=== PATIENT | female | born 1965 | race Caucasian/White ===

== ENCOUNTER → 2016-08-16 | Outpatient (CLI) | payer BC ==
--- NOTE | 2016-08-16 15:21 | REPMRS ---
Patient History The patient states she had a clinical breast exam in 2015. Family history of breast cancer in mother at age 81. Taking estrogen for 3 years. Digital Mammo Screening Bilat: August 16, 2016 - Exam #: [id number] Bilateral CC and MLO view(s) were taken. Technologist: Griselda Cunningham, Technologist Prior study comparison: December 07, 2014, bilateral digital mammo screening bilat performed at [facility] [facility]. FINDINGS: There are scattered fibroglandular densities. There has been no change in the appearance of the mammogram from the prior studies. There is a mild amount of residual fibroglandular tissue which is fairly symmetric. There is no interval development of dominant mass, architectural distortion, or clustered microcalcification suggestive of malignancy. ASSESSMENT: BI-RADS/ACR category 1 mammogram. Negative. Recommendation Routine screening mammogram in 1 year (for women over age 40). This mammogram was interpreted with the aid of an FDA-approved computer-aided dectection system. Electronically Signed By: Martir Olea MD 08/16/16 1982
--- NOTE | 2016-08-16 16:44 | REP ---
PELVIC ULTRASOUND: Real-time sonographic evaluation of the pelvis was performed utilizing transabdominal and endovaginal technique. The bladder measures 4.4 x 2.8 x 7.0 cm. The uterus measures 9.0 x 5.4 x 6.2 cm. Endometrial thickness is 8 mm. There is no endometrial fluid collection. Ovaries are normal in size and echotexture, right ovary measuring 2.2 x 1.6 x 1.4 cm and the left ovary measuring 3.2 x 1.4 x 2.0 cm. No adnexal mass is seen. There is no free fluid. Uterus is diffuse heterogenous. Endometrium is heterogenous and the borders of the endometrium are very ill-defined. IMPRESSION: Diffusely heterogenous myometrium and endometrium with ill-defined borders of the endometrium. Findings could indicate adenomyosis. Somewhat thickened endometrium in this postmenopausal patient could indicate endometrial hyperplasia. Recommend endometrial sampling to exclude neoplasm. Signed by Martir Olea MD 08/16/2016 05:04 P
== END ==
LOC: M RAD 14:02
PROVIDERS: ATTEND Obstetrics & Gynecology
DX: Z01.411 Encounter for gynecological examination (general) (routine) with abnormal findings (principal); Z12.31 Encounter for screening mammogram for malignant neoplasm of breast; Z80.3 Family history of malignant neoplasm of breast; Z79.899 Other long term (current) drug therapy; N85.00 Endometrial hyperplasia, unspecified; R93.8 Abnormal findings on diagnostic imaging of other specified body structures
CPT/HCPCS: 76830; 76856; G0202

== ENCOUNTER → 2016-12-19 | Outpatient (CLI) | payer BC ==
[~2016-12-19] MED LIST: MEGACE PO; MULT1TAB10 PO; VITA10002 PO
[2016-12-19 13:27] LABS: MEAN CORPUSCULAR HGB CONC 34.3 g/dl (32.0-36.5); MEAN CORPUSCULAR VOLUME 93.2 fl (80.0-96.0); RED CELL DISTRIBUTION WIDTH 12.8 % (11.5-14.5)
[2016-12-19 13:48] LABS: ALBUMIN 4.2 GM/DL (3.2-5.2); ALKALINE PHOSPHATASE 73 U/L (45-117); ALT/SGPT 32 U/L (12-78); ANION GAP 9 MEQ/L (8-16); AST/SGOT 19 U/L (15-37); BILIRUBIN,TOTAL 0.5 MG/DL (0.2-1.0); BLOOD UREA NITROGEN 18 MG/DL (7-18); CALCIUM LEVEL 9.2 MG/DL (8.5-10.1); CARBON DIOXIDE LEVEL 24 MEQ/L (21-32); CHLORIDE LEVEL 108 MEQ/L (98-107); CHOLESTEROL LEVEL 215 MG/DL (<200); CREATININE FOR GFR 0.81 MG/DL (0.55-1.02); GLOMERULAR FILTRATION RATE > 60.0 (>51); GLUCOSE, FASTING 83 MG/DL (70-105); POTASSIUM SERUM 4.5 MEQ/L (3.5-5.1); SODIUM LEVEL 141 MEQ/L (136-145); TOTAL PROTEIN 7.2 GM/DL (6.4-8.2); TRIGLYCERIDES LEVEL 117 MG/DL (<150)
== END ==
LOC: M SMT 09:01
PROVIDERS: ATTEND Nurse Practitioner Family
DX: R53.83 Other fatigue (principal)

== ENCOUNTER → 2016-12-23 | Day surgery (SDC) | payer BC ==
[~2016-12-23] VITALS: Ht 160 cm; Wt 90.7 kg
[~2016-12-23] MED LIST changes: +CHLOROPROCAINE 2 % INJ PRES.FREE 20 ML VIAL (J2400) As Ordered ONE; +IBUPROFEN 600 MG TAB PO PRN; +LACTATED RINGER'S 1000 ML IV ONE; +LACTATED RINGER'S 1000 ML IV PRN; +LIDOCAINE 2% INJ 100 MG/5 ML SDV (FOR ANES.) As Ordered ONE; +LIDOCAINE 2% JELLY 30 ML As Ordered ONE; +LR 1,000 ML IV ONE; +LR 1,000 ML IV SCH; +MEPERIDINE INJ 25 MG/ML VIAL (J2175) IV PRN; +METOCLOPRAMIDE INJ 10MG/2ML VIAL (J2765) IV PRN; +MIDAZOLAM INJ 2 MG/2 ML VIAL (J2250) As Ordered ONE; +ONDANSETRON 4MG/2ML VIAL (J2405) As Ordered ONE; +ONDANSETRON 4MG/2ML VIAL (J2405) IV PRN; +PERCOCET 5MG/325MG TAB PO PRN; +PROPOFOL 200 MG/20 ML VIAL As Ordered ONE; +ROCURONIUM BROMIDE 50 MG/5 ML VIAL/SYRINGE As Ordered ONE; +ePHEDrine INJ 50 MG/ML VIAL IV PRN; +ePHEDrine SULFATE 25 MG/5 ML(5MG/ML) SYRINGE As Ordered ONE; +fentaNYL 100 MCG/2 ML INJECTION (J3010) As Ordered ONE; +fentaNYL 100 MCG/2 ML INJECTION (J3010) IV PRN
--- NOTE | 2016-12-23 09:09 | RO ---
DATE OF PROCEDURE: 12/23/2016 PREOPERATIVE DIAGNOSIS/INDICATION FOR SURGERY: Postmenopausal bleeding and thickened endometrium by ultrasound. POSTOPERATIVE DIAGNOSIS: Postmenopausal bleeding and thickened endometrium by ultrasound. PROCEDURE: Dilatation and curettage, hysteroscopy, MyoSure resection. SURGEON: Bessie Hill MD WEIGH BOSS: None. ANESTHESIA: Spinal. BRIEF DESCRIPTION OF PROCEDURE AND FINDINGS: Adeola was brought to the operating room where sufficient spinal anesthesia was induced and she was prepped, draped and positioned in the usual sterile fashion. With the Landy retractor placed, the bladder emptied and the anterior aspect of the small, now nulliparous cervix grasped, the cervix was gently dilated with ease and the hysteroscope placed. A thickening of the endometrium both anteriorly and posteriorly, which could be a broad based polyp or simply a scar from her previous dilatation and curettage, or hyperplasia, was noted. It is also possible that this is a stalk to a previous fibroid. Obviously, hysteroscopy cannot prove these diagnoses the pathology boyer how, but there certainly was not any alarming appearance and these changes were somewhat focal as noted in the operative photos. The MyoSure light was used to resect these areas as well as to resect the endometrium circumferentially so as to send good samples to the pathologist and effort was made to dissect away these lesions down into the endometrium so they would be completely removed and with the direct visualization allowed by the MyoSure, this was readily achieved, even with the light. We then did final curettage and completed the procedure. ESTIMATED BLOOD LOSS FOR PROCEDURE: 2 mL. FLUID REPLACEMENT: Crystalloid. COMPLICATIONS: None. CONDITION AND DISPOSITION: Adeola tolerated the procedure well and was recovering in the recovery room in good condition.
[2016-12-23 11:05] VITALS: BP 151/86
== END | disposition home or self-care (01) ==
LOC: M SDC 05:55
PROVIDERS: ATTEND Obstetrics & Gynecology
DX: N95.0 Postmenopausal bleeding (principal); N85.00 Endometrial hyperplasia, unspecified; E04.1 Nontoxic single thyroid nodule
CPT/HCPCS: 58558; 88304; J2250; J2400; J2405; J3010

== ENCOUNTER → 2017-06-06 | Outpatient (CLI) | payer BC | LOC: M RAD 15:27 | DX: M18.11 Unilateral primary osteoarthritis of first carpometacarpal joint, right hand (principal) | CPT/HCPCS: 73130 ==

== ENCOUNTER → 2017-07-03 | Outpatient (CLI) | payer OTHER ==
[2017-07-03 09:38] LABS: HEMATOCRIT 45.9 % (36.0-47.0); HEMOGLOBIN 15.7 g/dl (12.0-16.0); MEAN CORPUSCULAR HEMOGLOBIN 30.4 pg (27.0-33.0); MEAN CORPUSCULAR HGB CONC 34.2 g/dl (32.0-36.5); MEAN CORPUSCULAR VOLUME 88.8 fl (80.0-96.0); PLATELET COUNT, AUTOMATED 258 10^3/uL (150-450); RED BLOOD COUNT 5.17 10^6/uL (4.00-5.40); WHITE BLOOD COUNT 4.6 10^3/uL (4.0-10.0)
[2017-07-03 10:01] LABS: ALBUMIN 4.4 GM/DL (3.2-5.2); ALBUMIN/GLOBULIN RATIO 1.26 (1.00-1.93); ALKALINE PHOSPHATASE 86 U/L (45-117); ALT/SGPT 32 U/L (12-78); ANION GAP 9 MEQ/L (8-16); AST/SGOT 17 U/L (7-37); BILIRUBIN,TOTAL 0.6 MG/DL (0.2-1.0); BLOOD UREA NITROGEN 20 MG/DL (7-18); CARBON DIOXIDE LEVEL 25 MEQ/L (21-32); CHLORIDE LEVEL 107 MEQ/L (98-107); CHOLESTEROL LEVEL 240 MG/DL (<200); CHOLESTEROL RISK RATIO 3.692 (<5); CREATININE FOR GFR 0.78 MG/DL (0.55-1.02); GLOMERULAR FILTRATION RATE > 60.0 (>51); GLUCOSE, FASTING 86 MG/DL (70-100); HDL CHOLESTEROL 65 MG/DL (>40); LDL CHOLESTEROL 161.4 MG/DL (<100); NON-HDL-C 175 MG/DL; POTASSIUM SERUM 4.6 MEQ/L (3.5-5.1); RHEUMATOID FACTOR QUANT < 10.0 IU/ML (0-15.0); SODIUM LEVEL 141 MEQ/L (136-145); THYROID STIMULATING HORMONE 0.396 uIU/ML (0.358-3.740); TOTAL PROTEIN 7.9 GM/DL (6.4-8.2); TRIGLYCERIDES LEVEL 68 MG/DL (<150)
[2017-07-03 10:08] LABS: ERYTHROCYTE SEDIMENTATION RATE 7 mm/hr (0-30)
[2017-07-05 00:11] LABS: ANTI DOUBLE STRAND-DNA AB 1 IU/mL (0-9); ANTINUCLEAR ANTIBODIES DIRECT Negative (Negative)
[2017-07-05 00:11] LABS: CYCLIC CITRULLINATED PEPTIDE 4 units (0-19)
== END ==
LOC: M LAB 08:55
DX: E04.0 Nontoxic diffuse goiter (principal)
CPT/HCPCS: 84443

== ENCOUNTER 2018-05-27 07:03 | Day surgery (SDC) | payer OTHER ==
[~2018-05-27] VITALS: Ht 160 cm; Wt 92.1 kg
[~2018-05-27 07:03] MED LIST changes: -CHLOROPROCAINE 2 % INJ PRES.FREE 20 ML VIAL (J2400) As Ordered ONE; -IBUPROFEN 600 MG TAB PO PRN; -LACTATED RINGER'S 1000 ML IV ONE; -LACTATED RINGER'S 1000 ML IV PRN; -LIDOCAINE 2% INJ 100 MG/5 ML SDV (FOR ANES.) As Ordered ONE; -LIDOCAINE 2% JELLY 30 ML As Ordered ONE; -LR 1,000 ML IV ONE; -LR 1,000 ML IV SCH; +MEGE20TA3 PO; -MEPERIDINE INJ 25 MG/ML VIAL (J2175) IV PRN; -METOCLOPRAMIDE INJ 10MG/2ML VIAL (J2765) IV PRN; -MIDAZOLAM INJ 2 MG/2 ML VIAL (J2250) As Ordered ONE; -ONDANSETRON 4MG/2ML VIAL (J2405) As Ordered ONE; -ONDANSETRON 4MG/2ML VIAL (J2405) IV PRN; -PERCOCET 5MG/325MG TAB PO PRN; -PROPOFOL 200 MG/20 ML VIAL As Ordered ONE; -ROCURONIUM BROMIDE 50 MG/5 ML VIAL/SYRINGE As Ordered ONE; -ePHEDrine INJ 50 MG/ML VIAL IV PRN; -ePHEDrine SULFATE 25 MG/5 ML(5MG/ML) SYRINGE As Ordered ONE; -fentaNYL 100 MCG/2 ML INJECTION (J3010) As Ordered ONE; -fentaNYL 100 MCG/2 ML INJECTION (J3010) IV PRN
[2018-05-27] MEDS ORDERED: NS 1,000 ML IV ONE (07:30)
[2018-05-27] MEDS ORDERED: LIDOCAINE 2% INJ 100 MG/5 ML SDV (FOR ANES.) As Ordered ONE (07:52)
[2018-05-27] MEDS ORDERED: PROPOFOL 200 MG/20 ML VIAL As Ordered ONE ×2 (07:52→08:26)
--- NOTE | 2018-05-27 08:32 | ROOR ---
Patient Name: Adeola Talamantes Procedure Date: 05/27/2018 8:14 AM Date of : 1965 Age: 52 Room: [facility] Gender: Female Note Status: Finalized Procedure: Total Colonoscopy to Cecum Indications: Screening for colorectal malignant neoplasm Providers: Alphonse Marie MD Referring MD: LUCILLE ROGERS MD Requesting Provider: Medicines: Monitored Anesthesia Care Complications: No immediate complications. Procedure: Pre-Anesthesia Assessment: - The heart rate, respiratory rate, oxygen saturations, blood pressure, adequacy of pulmonary ventilation, and response to care were monitored throughout the procedure. The Colonoscope was introduced through the anus and advanced to the cecum, identified by appendiceal orifice and ileocecal valve. The colonoscopy was performed without difficulty. The patient tolerated the procedure well. The quality of the bowel preparation was excellent. Findings: The perianal and digital rectal examinations were normal. Non-bleeding internal hemorrhoids were found during retroflexion. The hemorrhoids were small and Grade I (internal hemorrhoids that do not prolapse). No other significant abnormalities were identified in a careful examination of the remainder of the colon. The exam was otherwise without abnormality on direct and retroflexion views. Impression: - Non-bleeding internal hemorrhoids. - The examination was otherwise normal on direct and retroflexion views. - No specimens collected. - The exam was otherwise normal to the cecum. Recommendation: - Patient has a contact number available for emergencies. The signs and symptoms of potential delayed complications were discussed with the patient. Return to normal activities tomorrow. Written discharge instructions were provided to the patient. - High fiber diet. - Discharge patient to home. - Continue present medications. - Repeat colonoscopy in 10 years for screening purposes. - Return to referring physician. - The findings and recommendations were discussed with the patient's family. Alphonse Marie MD Alphonse Marie MD 05/27/2018 8:32:18 AM This report has been signed electronically. Number of Addenda: 0 Note Initiated On: 05/27/2018 8:14 AM Estimated Blood Loss: Estimated blood loss: none.
[2018-05-27 08:50] VITALS: BP 169/82
== END 2018-05-27 09:04 | disposition home or self-care (01) ==
LOC: M OPP 07:03
PROVIDERS: ATTEND Internal Medicine Gastroenterology
DX: K64.0 First degree hemorrhoids (principal); Z12.11 Encounter for screening for malignant neoplasm of colon

== ENCOUNTER → 2018-10-23 | Outpatient (CLI) | payer OTHER ==
[2018-10-23 10:01] LABS: HEMOGLOBIN 15.8 g/dl (12.0-15.5); MEAN CORPUSCULAR HEMOGLOBIN 31.2 pg (27.0-33.0); MEAN CORPUSCULAR HGB CONC 33.6 g/dl (32.0-36.5); MEAN CORPUSCULAR VOLUME 92.9 fl (80.0-96.0); PLATELET COUNT, AUTOMATED 224 10^3/uL (150-450); RED BLOOD COUNT 5.06 10^6/uL (4.00-5.40); WHITE BLOOD COUNT 4.4 10^3/uL (4.0-10.0)
--- NOTE | 2018-10-23 10:17 | REP ---
LEFT HIP, TWO VIEWS: HISTORY: Pain. There is no acute fracture or dislocation. There is minimal narrowing of the joint space with associated sclerosis. IMPRESSION : Degenerative change as described above. Electronically Signed by Vik Diaz MD 10/23/2018 10:32 A
--- NOTE | 2018-10-23 10:19 | REP ---
BILATERAL KNEES, NINE VIEWS: HISTORY: Bilateral knee pain. RIGHT KNEE: There is no acute fracture or dislocation. There is mild narrowing of the medial knee joint space and minimal narrowing of the lateral knee joint space. The patellofemoral joint space is normal in appearance. IMPRESSION: Degenerative change as described above. LEFT KNEE: There is no acute fracture or dislocation. There is mild narrowing of the medial knee joint space. The lateral knee joint space and patellofemoral joint space are normal in appearance. IMPRESSION:Degenerative change as described above. Electronically Signed by Vik Diaz MD 10/23/2018 10:32 A
[2018-10-23 10:37] LABS: H PYLORI QUALITATIVE IgG NEGATIVE (NEGATIVE)
[2018-10-23 10:39] LABS: ALBUMIN 3.8 GM/DL (3.2-5.2); ALT/SGPT 33 U/L (12-78); BILIRUBIN,TOTAL 0.5 MG/DL (0.2-1.0); BLOOD UREA NITROGEN 20 MG/DL (7-18); CALCIUM LEVEL 8.2 MG/DL (8.5-10.1); CARBON DIOXIDE LEVEL 23 MEQ/L (21-32); CHLORIDE LEVEL 110 MEQ/L (98-107); CHOLESTEROL LEVEL 227 MG/DL (<200); CHOLESTEROL RISK RATIO 3.783 (<5); CREATININE FOR GFR 0.64 MG/DL (0.55-1.30); GLOMERULAR FILTRATION RATE > 60.0 (>51); GLUCOSE, FASTING 94 MG/DL (70-100); HDL CHOLESTEROL 60 MG/DL (>40); LDL CHOLESTEROL 151 MG/DL (<100); NON-HDL-C 167 MG/DL; POTASSIUM SERUM 4.5 MEQ/L (3.5-5.1); SODIUM LEVEL 140 MEQ/L (136-145); TOTAL PROTEIN 7.3 GM/DL (6.4-8.2); TRIGLYCERIDES LEVEL 78 MG/DL (<150)
== END ==
LOC: M SMT 08:49
PROVIDERS: ATTEND Family Medicine
DX: M17.0 Bilateral primary osteoarthritis of knee (principal); M16.12 Unilateral primary osteoarthritis, left hip; E78.2 Mixed hyperlipidemia; R12 Heartburn

== ENCOUNTER → 2018-11-10 | Outpatient (CLI) | payer OTHER ==
--- NOTE | 2018-11-11 01:49 | REP ---
Clinical: Right hip pain. Technique: Neutral and frog lateral views of the right hip. Findings: Hip joint is intact and essentially normal for age. Cortical irregularity at the greater trochanter may reflect mild tendinopathy. No periarticular calcifications or loose bodies noted. Impression: Cortical irregularity at the greater trochanter suggests early tendinopathy. Electronically Signed by Jamal Villanueva MD 11/11/2018 01:41 A
== END ==
LOC: M SMT 13:04
PROVIDERS: ATTEND Family Medicine
DX: M25.551 Pain in right hip (principal)

== ENCOUNTER → 2018-12-09 | Outpatient (CLI) | payer OTHER ==
[~2018-12-09] MED LIST changes: +CYAN100049 PO; -VITA10002 PO
== END ==
LOC: M SMT 13:13
PROVIDERS: ATTEND Family Medicine
DX: E78.2 Mixed hyperlipidemia (principal)

== ENCOUNTER → 2018-12-11 | Outpatient (CLI) | payer OTHER ==
[2018-12-11 10:07] LABS: ALBUMIN 4.4 GM/DL (3.2-5.2); BILIRUBIN,DIRECT 0.1 MG/DL (0.0-0.2); BILIRUBIN,TOTAL 0.4 MG/DL (0.2-1.0); CHOLESTEROL RISK RATIO 2.54 (<5); TOTAL PROTEIN 7.5 GM/DL (6.4-8.2)
== END ==
LOC: M SMT 08:05
PROVIDERS: ATTEND Family Medicine
DX: E78.2 Mixed hyperlipidemia (principal)

== ENCOUNTER → 2019-01-04 | Outpatient (CLI) | payer OTHER ==
--- NOTE | 2019-01-04 17:37 | REP ---
Clinical: History of endometrial hyperplasia . Technique: Transabdominal pelvic ultrasound followed by transvaginal examination for better evaluation of the endometrium and adnexa with color Doppler evaluation of the ovaries. Findings: Bladder is unremarkable and measures 11.1 x 8.1 x 15.2 cm . Heterogeneous anteverted uterus measures 7.2 x 4.2 x 4.9 cm with 1.4 cm anterior intramural/subserosal mass likely representing fibroid. The endometrial complex measures 5.7 mm thickness. No discrete uterine or endometrial abnormalities are appreciated. Bilateral ovaries are normal in appearance and vascularity without evidence for torsion. Right ovary measures 2.8 x 1.7 x 1.8 cm ; R I = 0.50 . Left ovary measures 2.7 x 2.6 x 2.7 cm with complex 2.1 cm physiologic cysts ; R I = 0.60 . No pelvic mass lesion or free fluid. Impression: 1. Suspected 1.4 cm anterior fibroid. Electronically Signed by Jamal Villanueva MD 01/04/2019 05:29 P
== END ==
LOC: M RAD 16:50
PROVIDERS: ATTEND Obstetrics & Gynecology
DX: Z91.89 Other specified personal risk factors, not elsewhere classified (principal)

== ENCOUNTER → 2019-01-05 | Outpatient (CLI) | payer OTHER ==
--- NOTE | 2019-01-08 09:15 | SLEEPHOME ---
DATE OF PROCEDURE: 01/05/2019 ORDERED BY: Florina Alracon Diagnostic home sleep testing was performed due to concern for the obstructive sleep apnea syndrome in this patient with snoring and fatigue. For testing, a nocturnal T3 respiratory monitoring device was used. Continuous record was made of pulse, oxygen saturation, airflow, chest and abdominal strain and body position. 5 hours and 59 minutes of data were reviewed. There were 4 hours and 3 minutes marked as time in bed. During the interval marked time in bed, there were 19 respiratory events identified of 10 seconds in duration or greater for a respiratory event index of 4.7. The events that were seen were primarily hypopneic. Baseline pulse rate 71, pulse rate ranged 57-96. Baseline saturation 93%, saturations fell only to 90%. Testing was performed in both supine and nonsupine positions. IMPRESSION: Abnormal home sleep testing with repetitive respiratory events and oxygen desaturations to 90% with a respiratory event index of 4.7 is suggestive of obstructive sleep apnea syndrome. RECOMMENDATION: Though the frequency of respiratory events was slightly lower than what is generally seen in obstructive sleep apnea, the hours of recording were limited. Interventions to optimize upper airway tone and addressing weight loss would certainly be appropriate. If the patient's symptoms are persistent, retesting for a more prolonged period of time or in-laboratory testing may be necessary for definitive diagnosis. JB
== END ==
LOC: M SLEEP HO 09:58
PROVIDERS: ATTEND Nurse Practitioner Adult Health
DX: G47.30 Sleep apnea, unspecified (principal)

== ENCOUNTER → 2020-02-24 | Outpatient (CLI) | payer OTHER ==
[2020-02-24 10:59] LABS: HEMATOCRIT 48.1 % (36.0-47.0); HEMOGLOBIN 15.7 g/dl (12.0-15.5); MEAN CORPUSCULAR HEMOGLOBIN 30.6 pg (27.0-33.0); MEAN CORPUSCULAR HGB CONC 32.6 g/dl (32.0-36.5); MEAN CORPUSCULAR VOLUME 93.8 fl (80.0-96.0); PLATELET COUNT, AUTOMATED 236 10^3/uL (150-450); RED BLOOD COUNT 5.13 10^6/uL (4.00-5.40); WHITE BLOOD COUNT 4.9 10^3/uL (4.0-10.0)
[2020-02-24 11:28] LABS: ALBUMIN 3.9 GM/DL (3.2-5.2); ALT/SGPT 41 U/L (12-78); BILIRUBIN,TOTAL 0.4 MG/DL (0.2-1.0); BLOOD UREA NITROGEN 18 MG/DL (7-18); CALCIUM LEVEL 8.9 MG/DL (8.5-10.1); CARBON DIOXIDE LEVEL 24 MEQ/L (21-32); CHLORIDE LEVEL 111 MEQ/L (98-107); CHOLESTEROL LEVEL 176 MG/DL (<200); CHOLESTEROL RISK RATIO 2.983 (<5); CPK CREATINE PHOSPHOKINASE 108 U/L (26-192); FREE T4 0.85 NG/DL (0.76-1.46); GLOMERULAR FILTRATION RATE > 60.0 (>51); GLUCOSE, FASTING 89 MG/DL (70-100); HDL CHOLESTEROL 59 MG/DL (>40); LDL CHOLESTEROL 107 MG/DL (<100); NON-HDL-C 117 MG/DL; POTASSIUM SERUM 4.7 MEQ/L (3.5-5.1); SODIUM LEVEL 144 MEQ/L (136-145); THYROID STIMULATING HORMONE 0.381 uIU/ML (0.358-3.740); TOTAL PROTEIN 7.3 GM/DL (6.4-8.2); TRIGLYCERIDES LEVEL 50 MG/DL (<150)
== END ==
LOC: M LAB 09:14
PROVIDERS: ATTEND Family Medicine
DX: E04.2 Nontoxic multinodular goiter (principal); E66.8 Other obesity

== ENCOUNTER → 2020-09-13 | Outpatient (CLI) | payer OTHER ==
[2020-09-13 09:50] LABS: HEMATOCRIT 45.2 % (36.0-47.0); HEMOGLOBIN 15.1 g/dl (12.0-15.5); MEAN CORPUSCULAR HEMOGLOBIN 30.5 pg (27.0-33.0); MEAN CORPUSCULAR HGB CONC 33.4 g/dl (32.0-36.5); MEAN CORPUSCULAR VOLUME 91.3 fl (80.0-96.0); PLATELET COUNT, AUTOMATED 228 10^3/uL (150-450); RED BLOOD COUNT 4.95 10^6/uL (4.00-5.40); WHITE BLOOD COUNT 4.7 10^3/uL (4.0-10.0)
[2020-09-13 10:40] LABS: ALBUMIN 4.1 GM/DL (3.2-5.2); ALT/SGPT 28 U/L (12-78); BILIRUBIN,TOTAL 0.4 MG/DL (0.2-1.0); BLOOD UREA NITROGEN 14 MG/DL (7-18); CALCIUM LEVEL 9.1 MG/DL (8.5-10.1); CARBON DIOXIDE LEVEL 26 MEQ/L (21-32); CHLORIDE LEVEL 110 MEQ/L (98-107); CREATININE FOR GFR 0.68 MG/DL (0.55-1.30); FERRITIN 203 NG/ML (8-252); FREE T3 3.2 PG/ML (2.2-4.0); FREE T4 0.88 NG/DL (0.76-1.46); GLOMERULAR FILTRATION RATE > 60.0 (>51); GLUCOSE, FASTING 86 MG/DL (70-100); IRON (FE) 76 UG/DL (50-170); POTASSIUM SERUM 4.3 MEQ/L (3.5-5.1); SODIUM LEVEL 140 MEQ/L (136-145); THYROID STIMULATING HORMONE 0.475 uIU/ML (0.358-3.740); TOTAL PROTEIN 7.2 GM/DL (6.4-8.2)
[2020-09-13 12:00] LABS: VITAMIN B12 LEVEL 904 PG/ML (247-911)
[2020-09-13 12:01] LABS: FOLATE > 24.0 NG/ML (>5.4)
== END ==
LOC: M LAB 08:48
PROVIDERS: ATTEND Registered Nurse
DX: R53.83 Other fatigue (principal)

== ENCOUNTER → 2020-10-20 | Outpatient (CLI) | payer OTHER ==
[2020-10-20 10:53] LABS: ALBUMIN 4.1 GM/DL (3.2-5.2); BILIRUBIN,DIRECT 0.2 MG/DL (0.0-0.2); BILIRUBIN,TOTAL 0.7 MG/DL (0.2-1.0); CHOLESTEROL RISK RATIO 2.807 (<5); TOTAL PROTEIN 7.2 GM/DL (6.4-8.2)
== END ==
LOC: M LAB 09:05
PROVIDERS: ATTEND Family Medicine
DX: E78.2 Mixed hyperlipidemia (principal)

== ENCOUNTER → 2021-02-01 | Outpatient (CLI) | payer OTHER ==
--- NOTE | 2021-02-01 17:46 | REP ---
INDICATION: CHEST PAIN, UNSPECIFIED/ LABS FIRST, RAD 2ND COMPARISON: 09/05/2011 TECHNIQUE: PA and lateral. FINDINGS: The mediastinum and cardiac silhouette are normal. The lung esteban are clear and without acute consolidation, effusion, or pneumothorax. The skeletal structures are intact and normal. IMPRESSION: No acute cardiopulmonary process. <Electronically signed by Jamal Villanueva > 02/01/21 [id number]
== END ==
LOC: M LAB 17:06
PROVIDERS: ATTEND Registered Nurse
DX: R07.9 Chest pain, unspecified (principal); R91.8 Other nonspecific abnormal finding of lung field

== ENCOUNTER → 2021-02-15 | Outpatient (CLI) | payer OTHER ==
--- NOTE | 2021-02-15 16:55 | REP ---
INDICATION: ABN FINDING OF LUNG. COMPARISON: None. TECHNIQUE: CT chest performed without the use of intravenous contrast. Sagittal and coronal reconstruction images are performed. FINDINGS: Lungs: Clear, no infiltrate or nodule. Mediastinum: No gross adenopathy. A nodule in the left lobe of thyroid measures about 2 cm in diameter, a nodule of that size was present at that location on the prior ultrasound of 11/16/2013. Edilma: No gross adenopathy. Axilla: No gross adenopathy. Pleura: No effusion. Heart: Not enlarged. Thoracic aorta: No aneurysm. Upper abdominal structures: Possible gallstones in the gallbladder. Visualized osseous structures: There are degenerative changes of the spine without compression deformity.. IMPRESSION: No parenchymal abnormality. No gross adenopathy in the chest. Left thyroid nodule. A nodule of similar size was present at that location on the prior ultrasound of 11/16/2013. Possible gallstones in the gallbladder. <Electronically signed by Martir Olea > 02/15/21 [id number]
== END ==
LOC: M RAD 16:00
PROVIDERS: ATTEND Registered Nurse
DX: R91.8 Other nonspecific abnormal finding of lung field (principal); E04.1 Nontoxic single thyroid nodule

== ENCOUNTER → 2021-04-25 | Outpatient (CLI) | payer OTHER ==
[~2021-04-25] MED LIST changes: +ISOVUE-300 61% 50ML VIAL As Ordered ONE; +LIDOCAINE 1% MDV 20ML VIAL As Ordered ONE; +methylPREDNISolone SUSP 40MG/ML 1ML VIAL (DEPO MEDROL) As Ordered ONE
--- NOTE | 2021-04-25 12:30 | REP ---
INDICATION: IMPINGEMENT SYNDROME RT SHOULDER. COMPARISON: None TECHNIQUE: The procedure was performed by JAYSON Urbano, under the direct supervision of Dr Buenrostro. The benefits and risks of the procedure were explained to the patient, and an informed consent was obtained. Directly prior to the start of the procedure, a formal time-out was completed in the procedure room. The right shoulder joint space was localized using fluoroscopic guidance. The skin was prepped and draped in a sterile fashion. Approximately 5 mL of 1% Lidocaine 10 mg/ml was used as a local anesthetic. Using fluoroscopic guidance, a #22 gauge spinal needle was inserted and advanced into the right shoulder joint space. Approximately 2 mL of Isovue 300 was injected to verify placement. Seven mL of a solution containing 5 mL 1% lidocaine 10 mg/ml and 2 mL Depo-Medrol 40 mg/mL was injected into the joint space. The needle was removed and hemostasis was achieved. FINDINGS: The patient tolerated the procedure well and there were no immediate complications. IMPRESSION: 1. Technically successful right shoulder injection. 0.1 minutes of fluoroscopy time was utilized for this procedure. Some fluoroscopic images are performed with last image hold technology. These images require no additional radiation. <Electronically signed by Babrara Poe > 04/25/21 [id number] <Electronically signed by Hieu Buenrostro > 04/25/21 122
== END ==
LOC: M RADPRO 10:34
PROVIDERS: ATTEND Physician Assistant Surgical
DX: M75.41 Impingement syndrome of right shoulder (principal)
CPT/HCPCS: 20610; 77002; J1030; Q9967

== ENCOUNTER → 2021-07-23 | Outpatient (CLI) | payer OTHER ==
[~2021-07-23] MED LIST changes: -ISOVUE-300 61% 50ML VIAL As Ordered ONE; -LIDOCAINE 1% MDV 20ML VIAL As Ordered ONE; -methylPREDNISolone SUSP 40MG/ML 1ML VIAL (DEPO MEDROL) As Ordered ONE
[2021-07-23 11:45] LABS: BASO % 0.4 % (0.0-1.0); EOS # 0.1 10^3/uL (0.0-0.5); EOS % 1.8 % (0.0-3.0); HEMATOCRIT 46.5 % (36.0-47.0); HEMOGLOBIN 15.5 g/dl (12.0-15.5); LYMPH # 1.8 10^3/uL (1.5-5.0); LYMPH % 32.5 % (24.0-44.0); MEAN CORPUSCULAR HEMOGLOBIN 30.8 pg (27.0-33.0); MEAN CORPUSCULAR HGB CONC 33.3 g/dl (32.0-36.5); MEAN CORPUSCULAR VOLUME 92.4 fl (80.0-96.0); MONO # 0.4 10^3/uL (0.0-0.8); MONO % 7.3 % (2.0-8.0); NEUTROPHILS # 3.2 10^3/uL (1.5-8.5); NEUTROPHILS % 57.8 % (36.0-66.0); PLATELET COUNT, AUTOMATED 273 10^3/uL (150-450); RED BLOOD COUNT 5.03 10^6/uL (4.00-5.40); WHITE BLOOD COUNT 5.5 10^3/uL (4.0-10.0)
[2021-07-23 12:12] LABS: ALBUMIN 4.2 GM/DL (3.2-5.2); ALT/SGPT 37 U/L (12-78); BILIRUBIN,TOTAL 0.4 MG/DL (0.2-1.0); BLOOD UREA NITROGEN 15 MG/DL (7-18); CALCIUM LEVEL 9.6 MG/DL (8.5-10.1); CARBON DIOXIDE LEVEL 24 MEQ/L (21-32); CHLORIDE LEVEL 110 MEQ/L (98-107); CHOLESTEROL LEVEL 210 MG/DL (<200); CHOLESTEROL RISK RATIO 4.666 (<5); CREATININE FOR GFR 0.74 MG/DL (0.55-1.30); FREE T3 3.3 PG/ML (2.2-4.0); FREE T4 1.02 NG/DL (0.76-1.46); GLOMERULAR FILTRATION RATE > 60.0 (>51); GLUCOSE, FASTING 84 MG/DL (70-100); HDL CHOLESTEROL 45 MG/DL (>40); LDL CHOLESTEROL 135 MG/DL (<100); NON-HDL-C 165 MG/DL; POTASSIUM SERUM 3.8 MEQ/L (3.5-5.1); SODIUM LEVEL 143 MEQ/L (136-145); THYROID STIMULATING HORMONE 0.083 uIU/ML (0.358-3.740); TOTAL PROTEIN 7.5 GM/DL (6.4-8.2); TRIGLYCERIDES LEVEL 148 MG/DL (<150); URIC ACID 4.3 MG/DL (2.6-6.0)
[2021-07-23 13:01] LABS: TOTAL 25(OH) VITAMIN D 31.7 NG/ML (30.0-100.0)
== END ==
LOC: M LAB 10:49
PROVIDERS: ATTEND Family Medicine
DX: E04.2 Nontoxic multinodular goiter (principal); I10 Essential (primary) hypertension; E55.9 Vitamin D deficiency, unspecified; E66.9 Obesity, unspecified

== ENCOUNTER → 2021-08-27 | Outpatient (CLI) | payer OTHER ==
[2021-08-27 17:00] LABS: FREE T3 3.2 PG/ML (2.2-4.0); FREE T4 0.93 NG/DL (0.76-1.46); THYROID STIMULATING HORMONE 0.361 uIU/ML (0.358-3.740)
== END ==
LOC: M LAB 15:44
PROVIDERS: ATTEND Family Medicine
DX: E05.90 Thyrotoxicosis, unspecified without thyrotoxic crisis or storm (principal)

== ENCOUNTER → 2021-08-28 | Outpatient (CLI) | payer OTHER | LOC: M WHC 13:36 | PROVIDERS: ATTEND Obstetrics & Gynecology | DX: Z12.31 Encounter for screening mammogram for malignant neoplasm of breast (principal); Z80.3 Family history of malignant neoplasm of breast ==

== ENCOUNTER → 2022-01-03 | Outpatient (CLI) | payer OTHER ==
[2022-01-03 10:25] LABS: FREE T3 3.4 PG/ML (2.2-4.0); FREE T4 0.81 NG/DL (0.76-1.46); THYROID STIMULATING HORMONE 0.181 uIU/ML (0.358-3.740)
== END ==
LOC: M LAB 09:15
PROVIDERS: ATTEND Family Medicine
DX: E04.2 Nontoxic multinodular goiter (principal)

== ENCOUNTER → 2022-02-01 | Outpatient (CLI) | payer OTHER ==
[2022-02-01 10:40] LABS: ALBUMIN 3.9 GM/DL (3.2-5.2); ALT/SGPT 47 U/L (12-78); BILIRUBIN,DIRECT 0.1 MG/DL (0.0-0.2); BILIRUBIN,TOTAL 0.5 MG/DL (0.2-1.0); BLOOD UREA NITROGEN 18 MG/DL (7-18); CALCIUM LEVEL 9.1 MG/DL (8.5-10.1); CARBON DIOXIDE LEVEL 22 MEQ/L (21-32); CHLORIDE LEVEL 110 MEQ/L (98-107); CHOLESTEROL LEVEL 228 MG/DL (<200); CHOLESTEROL RISK RATIO 4.851 (<5); CREATININE FOR GFR 0.75 MG/DL (0.55-1.30); GLOMERULAR FILTRATION RATE > 60.0 (>51); GLUCOSE, FASTING 95 MG/DL (70-100); HDL CHOLESTEROL 47 MG/DL (>40); LDL CHOLESTEROL 162 MG/DL (<100); NON-HDL-C 181 MG/DL; POTASSIUM SERUM 4.1 MEQ/L (3.5-5.1); SODIUM LEVEL 138 MEQ/L (136-145); TRIGLYCERIDES LEVEL 95 MG/DL (<150)
== END ==
LOC: M LAB 08:49
PROVIDERS: ATTEND Family Medicine
DX: M25.50 Pain in unspecified joint (principal); E78.2 Mixed hyperlipidemia

== ENCOUNTER → 2022-05-24 | Outpatient (CLI) | payer OTHER ==
[2022-05-24 09:46] LABS: CHOLESTEROL RISK RATIO 4.45 (<5); HDL CHOLESTEROL 45.8 MG/DL (>40); LDL CHOLESTEROL 135.4 MG/DL (<100)
== END ==
LOC: M LAB 08:41
PROVIDERS: ATTEND Family Medicine
DX: M25.50 Pain in unspecified joint (principal)

== ENCOUNTER → 2022-06-08 | Outpatient (CLI) | payer OTHER ==
[2022-06-08 12:22] LABS: FREE T4 1.06 NG/DL (0.89-1.76); THYROID STIMULATING HORMONE 0.19 uIU/ML (0.55-4.78); TOTAL T3 119.8 NG/DL (60.0-181.0)
== END ==
LOC: M LAB 10:59
PROVIDERS: ATTEND Nurse Practitioner Family
DX: E04.2 Nontoxic multinodular goiter (principal)

== ENCOUNTER → 2022-07-11 | Outpatient (CLI) | payer OTHER | LOC: M RAD 11:23 | PROVIDERS: ATTEND Internal Medicine Endocrinology, Diabetes & Metabolism | DX: E07.89 Other specified disorders of thyroid (principal); R94.6 Abnormal results of thyroid function studies | CPT/HCPCS: 78012; A9516 ==

== ENCOUNTER → 2022-08-07 | Outpatient (CLI) | payer OTHER ==
[2022-08-07 10:02] LABS: BASO % 0.4 % (0.0-1.0); EOS # 0.1 10^3/uL (0.0-0.5); EOS % 2.4 % (0.0-3.0); HEMATOCRIT 47.5 % (36.0-47.0); HEMOGLOBIN 15.2 g/dl (12.0-15.5); LYMPH # 1.5 10^3/uL (1.5-5.0); LYMPH % 32.6 % (24.0-44.0); MEAN CORPUSCULAR HEMOGLOBIN 29.9 pg (27.0-33.0); MEAN CORPUSCULAR VOLUME 93.5 fl (80.0-96.0); MONO # 0.4 10^3/uL (0.0-0.8); MONO % 8.6 % (2.0-8.0); NEUTROPHILS # 2.6 10^3/uL (1.5-8.5); NEUTROPHILS % 55.8 % (36.0-66.0); PLATELET COUNT, AUTOMATED 241 10^3/uL (150-450); RED BLOOD COUNT 5.08 10^6/uL (4.00-5.40); WHITE BLOOD COUNT 4.6 10^3/uL (4.0-10.0)
[2022-08-07 10:36] LABS: URIC ACID 4.6 MG/DL (3.1-7.8)
[2022-08-07 10:40] LABS: ALKALINE PHOSPHATASE 66 U/L (46-116); ALT/SGPT 38 U/L (7.0-40); AST/SGOT 23 U/L (<34); BILIRUBIN,TOTAL 0.5 MG/DL (0.3-1.2); BLOOD UREA NITROGEN 21 MG/DL (9-23); CARBON DIOXIDE LEVEL 28 MMOL/L (20-31); CHLORIDE LEVEL 107 MMOL/L (98-107); CHOLESTEROL LEVEL 209 MG/DL (<200); CHOLESTEROL RISK RATIO 4.39 (<5); CREATININE FOR GFR 0.63 MG/DL (0.55-1.30); GLOMERULAR FILTRATION RATE > 60.0 (>51); GLUCOSE, FASTING 104 MG/DL (60-100); HDL CHOLESTEROL 47.6 MG/DL (>40); LDL CHOLESTEROL 134.2 MG/DL (<100); NON-HDL-C 161 MG/DL; POTASSIUM SERUM 3.9 MMOL/L (3.5-5.1); SODIUM LEVEL 142 MMOL/L (136-145); TRIGLYCERIDES LEVEL 136 MG/DL (<150)
[2022-08-07 10:41] LABS: CREATININE, URINE 64.3 MG/DL; FREE T4 1.18 NG/DL (0.89-1.76); THYROID STIMULATING HORMONE 0.206 uIU/ML (0.55-4.78)
[2022-08-07 10:47] LABS: MAU/CREAT RATIO 7.7 MCG/MG (0.0-30.0)
== END ==
LOC: M LAB 09:10
PROVIDERS: ATTEND Family Medicine
DX: E04.2 Nontoxic multinodular goiter (principal); I10 Essential (primary) hypertension; E66.9 Obesity, unspecified

== ENCOUNTER → 2022-09-26 | Outpatient (CLI) | payer OTHER | LOC: M RAD 10:40 | PROVIDERS: ATTEND Family Medicine | DX: M85.80 Other specified disorders of bone density and structure, unspecified site (principal) ==

== ENCOUNTER → 2022-10-11 | Outpatient (REF) | payer OTHER | LOC: M SFHCWAGY 10:25 | PROVIDERS: ATTEND Nurse Practitioner Family | DX: Z12.4 Encounter for screening for malignant neoplasm of cervix (principal); Z77.9 Other contact with and (suspected) exposures hazardous to health | CPT/HCPCS: 87624; G0123 ==

== ENCOUNTER → 2022-10-11 | Outpatient (CLI) | payer OTHER | LOC: M WHC 13:25 | PROVIDERS: ATTEND Family Medicine | DX: M85.89 Other specified disorders of bone density and structure, multiple sites (principal) ==

== ENCOUNTER → 2022-11-22 | Outpatient (CLI) | payer OTHER ==
[2022-11-22 09:14] LABS: APPEARANCE, URINE HAZY (CLEAR); BACTERIA, URINE AUTO NEGATIVE (NEGATIVE); BILIRUBIN, URINE AUTO NEGATIVE (NEGATIVE); BLOOD, URINE BLOOD NEGATIVE (NEGATIVE); COLOR, URINE YELLOW (YELLOW); GLUCOSE, URINE (UA) AUTO NEGATIVE (NEGATIVE); KETONE, URINE AUTO NEGATIVE (NEGATIVE); LEUKOCYTE ESTERASE, URINE AUTO 3+ (NEGATIVE); MUCUS, URINE SMALL (NEGATIVE); NITRITE, URINE AUTO NEGATIVE (NEGATIVE); PROTEIN, URINE AUTO NEGATIVE (NEGATIVE); RBC, URINE AUTO 1 /HPF (0-3); SQUAMOUS EPITHELIAL CELL UR AU 2 /HPF (0-6); UROBILINOGEN, URINE AUTO 0.2 mg/dL (0.0-2.0); WBC, URINE AUTO 8 /HPF (0-3)
[2022-11-22 09:15] LABS: BASO % 0.4 % (0.0-1.0); EOS # 0.1 10^3/uL (0.0-0.5); EOS % 1.9 % (0.0-3.0); HEMATOCRIT 44.5 % (36.0-47.0); HEMOGLOBIN 14.3 g/dl (12.0-15.5); LYMPH # 1.7 10^3/uL (1.5-5.0); LYMPH % 36.1 % (24.0-44.0); MEAN CORPUSCULAR HGB CONC 32.1 g/dl (32.0-36.5); MEAN CORPUSCULAR VOLUME 93.5 fl (80.0-96.0); MONO # 0.4 10^3/uL (0.0-0.8); MONO % 7.8 % (2.0-8.0); NEUTROPHILS # 2.5 10^3/uL (1.5-8.5); NEUTROPHILS % 53.8 % (36.0-66.0); PLATELET COUNT, AUTOMATED 243 10^3/uL (150-450); RED BLOOD COUNT 4.76 10^6/uL (4.00-5.40); WHITE BLOOD COUNT 4.6 10^3/uL (4.0-10.0)
[2022-11-22 09:47] LABS: ALKALINE PHOSPHATASE 71 U/L (46-116); ALT/SGPT 32 U/L (7.0-40); AST/SGOT 15 U/L (<34); BILIRUBIN,TOTAL 0.5 MG/DL (0.3-1.2); BLOOD UREA NITROGEN 17 MG/DL (9-23); CALCIUM LEVEL 9.4 MG/DL (8.5-10.1); CARBON DIOXIDE LEVEL 24 MMOL/L (20-31); CHLORIDE LEVEL 107 MMOL/L (98-107); CREATININE FOR GFR 0.67 MG/DL (0.55-1.30); GLOMERULAR FILTRATION RATE > 60.0 (>51); GLUCOSE, FASTING 93 MG/DL (60-100); POTASSIUM SERUM 4.2 MMOL/L (3.5-5.1); SODIUM LEVEL 139 MMOL/L (136-145); TOTAL PROTEIN 6.8 G/DL (5.7-8.2)
[2022-11-22 09:49] LABS: TOTAL 25(OH) VITAMIN D 35.1 NG/ML (20.0-100.0)
[2022-11-22 09:51] LABS: INR 1.02; PROTHROMBIN TIME 13.6 SECONDS (12.5-14.5)
== END ==
LOC: M LAB 08:39
PROVIDERS: ATTEND Orthopaedic Surgery
DX: Z01.818 Encounter for other preprocedural examination (principal)

== ENCOUNTER → 2022-11-27 | Outpatient (CLI) | payer OTHER | LOC: M WHC 07:03 | PROVIDERS: ATTEND Family Medicine | DX: Z12.31 Encounter for screening mammogram for malignant neoplasm of breast (principal) ==

== ENCOUNTER → 2022-12-05 | Outpatient (REF) | payer OTHER ==
[2022-12-05 12:25] LABS: APPEARANCE, URINE CLEAR (CLEAR); BACTERIA, URINE AUTO NEGATIVE (NEGATIVE); BILIRUBIN, URINE AUTO NEGATIVE (NEGATIVE); BLOOD, URINE BLOOD NEGATIVE (NEGATIVE); COLOR, URINE STRAW (YELLOW); GLUCOSE, URINE (UA) AUTO NEGATIVE (NEGATIVE); KETONE, URINE AUTO NEGATIVE (NEGATIVE); LEUKOCYTE ESTERASE, URINE AUTO NEGATIVE (NEGATIVE); NITRITE, URINE AUTO NEGATIVE (NEGATIVE); PROTEIN, URINE AUTO NEGATIVE (NEGATIVE); RBC, URINE AUTO 0 /HPF (0-3); SPECIFIC GRAVITY URINE AUTO 1.005 (1.002-1.035); SQUAMOUS EPITHELIAL CELL UR AU 0 /HPF (0-6); UROBILINOGEN, URINE AUTO 0.2 mg/dL (0.0-2.0); WBC, URINE AUTO 0 /HPF (0-3)
== END ==
LOC: M LAB REF 11:16
PROVIDERS: ATTEND Physician Assistant
DX: Z01.818 Encounter for other preprocedural examination (principal)

== ENCOUNTER → 2023-02-06 | Outpatient (CLI) | payer OTHER ==
[2023-02-06 12:37] LABS: FREE T4 1.13 NG/DL (0.89-1.76); THYROID STIMULATING HORMONE 0.128 uIU/ML (0.55-4.78); TOTAL T3 136.3 NG/DL (60.0-181.0)
== END ==
LOC: M LAB 11:05
PROVIDERS: ATTEND Internal Medicine Endocrinology, Diabetes & Metabolism
DX: E04.2 Nontoxic multinodular goiter (principal)

== ENCOUNTER → 2023-06-16 | Outpatient (CLI) | payer OTHER ==
[2023-06-16 17:34] LABS: RSV AMPLIFICATION NEGATIVE (NEGATIVE)
== END ==
LOC: M LAB 12:50
PROVIDERS: ATTEND Family Medicine
DX: R05.9 Cough, unspecified (principal)

== ENCOUNTER → 2023-08-08 | Outpatient (CLI) | payer OTHER ==
[2023-08-08 15:34] LABS: FREE T4 1.11 NG/DL (0.89-1.76); THYROID STIMULATING HORMONE 0.066 uIU/ML (0.55-4.78)
[2023-08-08 15:36] LABS: TOTAL T3 153.4 NG/DL (60.0-181.0)
== END ==
LOC: M LAB 14:36
PROVIDERS: ATTEND Internal Medicine
DX: E04.2 Nontoxic multinodular goiter (principal)

== ENCOUNTER → 2023-10-09 | Outpatient (CLI) | payer OTHER | LOC: M WHC 14:33 | PROVIDERS: ATTEND Nurse Practitioner Family | DX: N85.00 Endometrial hyperplasia, unspecified (principal); D25.1 Intramural leiomyoma of uterus; R93.89 Abnormal findings on diagnostic imaging of other specified body structures ==

== ENCOUNTER → 2023-10-13 | Outpatient (REF) | payer OTHER | LOC: M SFHCWAGY 10:23 | PROVIDERS: ATTEND Nurse Practitioner Family | DX: Z12.4 Encounter for screening for malignant neoplasm of cervix (principal); R87.610 Atypical squamous cells of undetermined significance on cytologic smear of cervix (ASC-US) ==

== ENCOUNTER → 2023-12-09 | Outpatient (CLI) | payer OTHER ==
[2023-12-09 14:38] LABS: CARCINOEMBRYONIC ANTIGEN < 2.0 NG/ML (<2.5)
[2023-12-13 19:42] LABS: HE4 39 pmol/L
== END ==
LOC: M PLALAB 11:23
PROVIDERS: ATTEND Nurse Practitioner Family
DX: N83.209 Unspecified ovarian cyst, unspecified side (principal)

== ENCOUNTER → 2024-01-05 | Outpatient (CLI) | payer OTHER ==
[2024-01-05 10:06] LABS: BASO % 0.4 % (0.0-1.0); EOS # 0.1 10^3/uL (0.0-0.5); EOS % 2.4 % (0.0-3.0); HEMATOCRIT 45.4 % (36.0-47.0); HEMOGLOBIN 14.9 g/dl (12.0-15.5); LYMPH # 1.8 10^3/uL (1.5-5.0); MEAN CORPUSCULAR HGB CONC 32.8 g/dl (32.0-36.5); MEAN CORPUSCULAR VOLUME 91.3 fl (80.0-96.0); MONO # 0.5 10^3/uL (0.0-0.8); MONO % 9.1 % (2.0-8.0); NEUTROPHILS # 2.5 10^3/uL (1.5-8.5); NEUTROPHILS % 51.1 % (36.0-66.0); PLATELET COUNT, AUTOMATED 197 10^3/uL (150-450); RED BLOOD COUNT 4.97 10^6/uL (4.00-5.40); WHITE BLOOD COUNT 4.9 10^3/uL (4.0-10.0)
[2024-01-05 10:30] LABS: URIC ACID 5.3 MG/DL (3.1-7.8)
[2024-01-05 10:31] LABS: CREATININE, URINE 142.9 MG/DL
[2024-01-05 10:32] LABS: MAU/CREAT RATIO 4.8 MCG/MG (0.0-30.0)
[2024-01-05 10:33] LABS: ALBUMIN 3.9 G/DL (3.2-5.2); ALKALINE PHOSPHATASE 60 U/L (46-116); ALT/SGPT 41 U/L (7.0-40); AST/SGOT 18 U/L (<34); BILIRUBIN,TOTAL 0.5 MG/DL (0.3-1.2); BLOOD UREA NITROGEN 16 MG/DL (9-23); CALCIUM LEVEL 8.8 MG/DL (8.3-10.6); CARBON DIOXIDE LEVEL 28 MMOL/L (20-31); CHLORIDE LEVEL 106 MMOL/L (98-107); CHOLESTEROL LEVEL 225 MG/DL (<200); CHOLESTEROL RISK RATIO 4.89 (<5); CREATININE FOR GFR 0.67 MG/DL (0.55-1.30); FREE T4 1.14 NG/DL (0.89-1.76); GLOMERULAR FILTRATION RATE > 60.0 (>45); GLUCOSE, FASTING 84 MG/DL (74-106); LDL CHOLESTEROL 146.6 MG/DL (<100); POTASSIUM SERUM 3.9 MMOL/L (3.5-5.1); SODIUM LEVEL 139 MMOL/L (136-145); TOTAL PROTEIN 6.7 G/DL (5.7-8.2); TRIGLYCERIDES LEVEL 162 MG/DL (<150)
[2024-01-05 10:34] LABS: FREE T3 3.8 PG/ML (2.3-4.2)
[2024-01-05 10:35] LABS: THYROID STIMULATING HORMONE 0.064 uIU/ML (0.55-4.78); TOTAL 25(OH) VITAMIN D 32.2 NG/ML (20.0-100.0)
== END ==
LOC: M LAB 08:50
PROVIDERS: ATTEND Family Medicine
DX: M89.9 Disorder of bone, unspecified (principal); I10 Essential (primary) hypertension; E07.89 Other specified disorders of thyroid; E66.01 Morbid (severe) obesity due to excess calories

== ENCOUNTER → 2024-01-23 | Outpatient (CLI) | payer OTHER | LOC: M WHC 13:25 | PROVIDERS: ATTEND Nurse Practitioner Family | DX: Z12.31 Encounter for screening mammogram for malignant neoplasm of breast (principal); R92.313 Mammographic fatty tissue density, bilateral breasts ==

== ENCOUNTER 2024-09-20 05:46 | Emergency (ER) | payer OTHER ==
[~2024-09-20] VITALS: Ht 160 cm; Wt 82.7 kg
[2024-09-20 05:49] VITALS: TEMP 97.8
[2024-09-20] MEDS ORDERED: ACET-907 PO (07:27)
[2024-09-20] MEDS ORDERED: NAPR-885 PO (07:27)
[2024-09-20] MEDS: diazePAM 5MG TABLET PO ONE ×2 (07:49→10:12)
[2024-09-20] MEDS: predniSONE 20 MG TAB PO ONE (07:49)
[2024-09-20] MEDS: KETOROLAC 60MG 2ML VIAL IM ONE (07:50)
[2024-09-20] MEDS: NORCO, ANEXSIA 5/325MG TABLET (HYDROcodone/ACETAMINOPHEN) PO ONE (12:45)
[2024-09-20] MEDS ORDERED: MEDR4PAK PO (13:28)
[2024-09-20] MEDS ORDERED: NAPR-837 PO (13:28)
[2024-09-20] MEDS ORDERED: METH-1165 PO (13:28)
[2024-09-20] MEDS ORDERED: HYDR-3713 PO (13:28)
[2024-09-20 13:30] VITALS: BP 137/65; O2SAT 97
== END 2024-09-20 14:24 | disposition home or self-care (01) ==
LOC: M ED 05:46
DX: M25.551 Pain in right hip (principal); M47.26 Other spondylosis with radiculopathy, lumbar region; M51.360 Other intervertebral disc degeneration, lumbar region with discogenic back pain only; Z79.899 Other long term (current) drug therapy; Z79.1 Long term (current) use of non-steroidal anti-inflammatories (NSAID)
CPT/HCPCS: 72131; 73502; 96372; 99284; J1885; J7512

== ENCOUNTER → 2024-10-21 | Outpatient (CLI) | payer OTHER ==
[~2024-10-21] MED LIST changes: +ACET-907 PO; +HYDR-3713 PO; +MEDR4PAK PO; +METH-1165 PO; +NAPR-837 PO; +NAPR-885 PO
== END ==
LOC: M WHC 09:11
PROVIDERS: ATTEND Family Medicine
DX: M81.0 Age-related osteoporosis without current pathological fracture (principal)

== ENCOUNTER → 2024-10-21 | Outpatient (CLI) | payer OTHER ==
[2024-10-21 13:41] LABS: BASO % 0.4 % (0.0-1.0); EOS # 0.1 10^3/uL (0.0-0.5); EOS % 1.9 % (0.0-3.0); HEMATOCRIT 39.4 % (36.0-47.0); HEMOGLOBIN 12.6 g/dl (12.0-15.5); LYMPH # 1.4 10^3/uL (1.5-5.0); LYMPH % 25.1 % (24.0-44.0); MEAN CORPUSCULAR HEMOGLOBIN 29.4 pg (27.0-33.0); MEAN CORPUSCULAR VOLUME 92.1 fl (80.0-96.0); MONO # 0.5 10^3/uL (0.0-0.8); MONO % 8.3 % (2.0-8.0); NEUTROPHILS # 3.6 10^3/uL (1.5-8.5); NEUTROPHILS % 64.1 % (36.0-66.0); PLATELET COUNT, AUTOMATED 348 10^3/uL (150-450); RED BLOOD COUNT 4.28 10^6/uL (4.00-5.40); WHITE BLOOD COUNT 5.7 10^3/uL (4.0-10.0)
[2024-10-21 13:47] LABS: TOTAL 25(OH) VITAMIN D 47.5 NG/ML (20.0-100.0)
[2024-10-21 13:49] LABS: THYROID STIMULATING HORMONE < 0.010 uIU/ML (0.55-4.78)
[2024-10-21 13:50] LABS: FREE T4 1.27 NG/DL (0.89-1.76)
[2024-10-21 13:54] LABS: URIC ACID 5.2 MG/DL (3.1-7.8)
[2024-10-21 13:57] LABS: ALBUMIN 3.4 G/DL (3.2-5.2); ALKALINE PHOSPHATASE 71 U/L (35-104); ALT/SGPT 18 U/L (7.0-40); AST/SGOT 20 U/L (<34); BILIRUBIN,TOTAL 0.4 MG/DL (0.3-1.2); BLOOD UREA NITROGEN 14 MG/DL (9-23); CALCIUM LEVEL 9.1 MG/DL (8.3-10.6); CARBON DIOXIDE LEVEL 30 MMOL/L (20-31); CHLORIDE LEVEL 101 MMOL/L (98-107); CREATININE FOR GFR 0.56 MG/DL (0.55-1.30); FREE T3 3.8 PG/ML (2.3-4.2); GLOMERULAR FILTRATION RATE > 90.0 (>45); GLUCOSE, FASTING 80 MG/DL (74-106); MAGNESIUM LEVEL 1.9 MG/DL (1.8-2.4); POTASSIUM SERUM 4.2 MMOL/L (3.5-5.1); SODIUM LEVEL 140 MMOL/L (136-145); TOTAL PROTEIN 7.8 G/DL (5.7-8.2)
[2024-10-21 14:07] LABS: MALB URINE SIEMENS < 3.0 MG/L
== END ==
LOC: M PLALAB 10:21
PROVIDERS: ATTEND Family Medicine
DX: M89.9 Disorder of bone, unspecified (principal)